=== PATIENT | female | born 1970 | race Caucasian/White ===

== ENCOUNTER 2024-04-14 06:25 | Day surgery (SDC) | payer BC, SELFPAY | END 2024-04-14 14:55 | disposition home or self-care (01) | LOC: GI 06:25 | PROVIDERS: ATTENDING PHYSICIAN Internal Medicine Gastroenterology | DX: D12.2 Benign neoplasm of ascending colon (principal); D12.4 Benign neoplasm of descending colon; K63.89 Other specified diseases of intestine; Q43.8 Other specified congenital malformations of intestine | CPT/HCPCS: 45385; 45380; 88305 ==